=== PATIENT | male | born 1970 | race African-American/Black ===

== ENCOUNTER 2021-11-23 04:29 | Day surgery (SDC) | payer OTHER ==
[2021-11-22 12:53] VITALS: BMI 19.5
[2021-11-23] MEDS ORDERED: ROPIVACAINE HCL 0.5% 30ML VIAL ONE (12:21)
[2021-11-23] MEDS ORDERED: PROPOFOL 20 ML ONE (12:51)
[2021-11-23] MEDS ORDERED: MIDAZOLAM HCL 2 MG/2 ML SINGLE DOSE VIAL ONE ×2 (12:54)
[2021-11-23] MEDS ORDERED: ceFAZolin SODIUM 1 GM VIAL IVPB ONE (13:51)
[2021-11-23 17:23] VITALS: BP 124/79; PULSE 60; TEMP 98
== END 2021-11-23 16:30 | disposition home or self-care (01) ==
LOC: JASU-SURG 04:29
PROVIDERS: ATTEND Orthopaedic Surgery
PROC: 0LM24ZZ Reattachment of Left Shoulder Tendon, Percutaneous Endoscopic Approach (ICD-10-PCS; principal; 2021-11-23 13:00)
PROC: 0RNK4ZZ Release Left Shoulder Joint, Percutaneous Endoscopic Approach (ICD-10-PCS; 2021-11-23 13:00)
DX: M75.102 Unspecified rotator cuff tear or rupture of left shoulder, not specified as traumatic (principal); M25.512 Pain in left shoulder; X58.XXXA Exposure to other specified factors, initial encounter; Y92.9 Unspecified place or not applicable; Y93.9 Activity, unspecified
CPT/HCPCS: 29826; 29827; C1776; 94760